=== PATIENT | female | born 1985 | race African-American/Black ===

== ENCOUNTER 2020-07-05 04:51 | Emergency (ER) | payer SELFPAY ==
[2020-07-05 06:01] LABS: Hemoglobin 13.1 g/dL (12.0-16.0); Mean Corpuscular HGB CONC 32.9 g/dL (32.0-36.0); Mean Corpuscular Hemoglobin 29.9 pg (27.0-31.0); Mean Platelet Volume 7.9 fL (7.4-10.4); Platelet Count 223 thou/uL (130-400); RBC Distribution Width 11.8 % (11.5-14.5); Red Blood Cell (RBC) Count 4.38 mill/uL (4.20-5.40); White Blood Cell (WBC) Count 11.4 thou/uL (4.8-10.8)
[2020-07-05 06:23] LABS: Band 4 % (5-11); Lymphocytes 4 % (21-51); MDiff Complete? YES; Monocytes 3 % (0-10); Neutrophil 88 % (42-75); Reactive Lymphocytes 1 % (0-10)
[2020-07-05 06:26] LABS: Anion Gap 11 mmol/L (10-20); BUN (Urea Nitrogen) 13 mg/dL (7.0-18.7); Calc. Creatinine Clearance 0 mL/min (70-130); Carbon Dioxide 24 mmol/L (22-29); Chloride 108 mmol/L (98-107); Potassium 3.9 mmol/L (3.5-5.1); Sodium 139 mmol/L (136-145)
[2020-07-05] MEDS ORDERED: Ketorolac Tromethamine 30 MG/ML VIAL ONE (06:26)
[2020-07-05] MEDS ORDERED: Acetaminophen 500 MG TAB ONE (06:26)
[2020-07-05 06:27] LABS: ALT (SGPT) 16 U/L (8-55); AST (SGOT) 19 U/L (5-34); Albumin 3.7 g/dL (3.5-5.0); Alkaline Phosphatase 70 U/L (40-110); Bilirubin, Total 0.9 mg/dL (0.2-1.2); Globulin 2.6 g/dL (2.4-3.5); Glucose 101 mg/dL (70-105); Protein, Total 6.3 g/dL (6.0-8.3)
[2020-07-05 12:54] LABS: SARS-CoV-2 PCR by NAA Not Detected (NotDetected)
== END 2020-07-05 07:31 | disposition home or self-care (01) ==
LOC: ERS 04:51
DX: B34.9 Viral infection, unspecified (principal); Z79.899 Other long term (current) drug therapy; Z20.822 Contact with and (suspected) exposure to COVID-19
CPT/HCPCS: 71045; 80053; 85025; 87635; 93005; 96374; J1885; U0003; U0005